=== PATIENT | male | born 1945 | race Caucasian/White ===

== ENCOUNTER → 2023-07-15 16:25 | Outpatient (REF) | payer MEDICARE, OTHER, SELFPAY | LOC: PAVMRI 16:25 | PROVIDERS: ATTENDING PHYSICIAN Specialist; FAMILY PHYSICIAN Internal Medicine | DX: M25.552 Pain in left hip (principal) | CPT/HCPCS: 72148; 73721 ==

== ENCOUNTER 2023-10-21 19:42 | Emergency (ER) | payer MEDICARE, OTHER, SELFPAY ==
[2023-10-21 19:43] VITALS: BP 180/81
[2023-10-21 22:05] VITALS: BP 173/76
[2023-10-21 22:06] VITALS: BP 173/76; BMI 35.4
[2023-10-21 22:24] LABS: % Basophils 0.8 % (0-2); % Eosinophils 2.3 % (0-6); % Immature Granulocytes 0.2 % (0-0.5); % Lymphocytes 24.4 % (20.5-51.1); % Monocytes 14.4 % (1.7-9.3); % Neutrophils 57.9 % (42.2-75.2); Absolute Basophils 0.1 10^3/uL (0-0.2); Absolute Eosinophils 0.2 10^3/uL (0-0.7); Absolute Lymphocytes 2.2 10^3/uL (1.2-3.4); Absolute Monocytes 1.3 10^3/uL (0.1-0.6); Absolute Neutrophils 5.3 10^3/uL (1.4-6.5); Hematocrit 38.4 % (39.0-52.0); Hemoglobin 13.6 g/dL (13.0-18.0); Mean Corp Hgb Conc. 35.4 g/dL (33.0-37.0); Mean Corpuscular Hgb 30.7 pg (27.0-31.0); Mean Corpuscular Volume 86.7 fL (80.0-94.0); Mean Platelet Volume 9.5 fL (7.4-10.4); Nucleated Red Blood Cells % 0 % (-); Platelet Count 245 10^3/uL (130-400); Red Blood Cell Count 4.43 10^6/uL (4.70-6.10); Red Cell Dist. Width 13.2 % (11.5-14.5); White Blood Cell Count 9.2 10^3/uL (4.8-10.8)
--- NOTE | 2023-10-21 22:25 | ED.GENMED ---
History of Present Illness
General
Chief Complaint: Swelling
Source: patient
Exam Limitations: none
Time Seen by Provider: 10/21/23 22:09
Nursing documentation reviewed up to this point in time: agreed with
History of Present Illness
History of Present Illness:
Pleasant 78-year-old male that presents with right leg swelling and pain. He states that the pain began yesterday afternoon. He noted that there was some swelling. The swelling persisted throughout today so he came into the emergency department
for evaluation. Incidentally, patient was on a [address] trip for which she recently returned. When he did return he had some shortness of breath. He was seen in his family doctor and diagnosed with 'pneumonia'. He was placed on several
antibiotics and his symptoms mostly resolved. He states that after returning to the family doctor he was told that the initial diagnosis was not pneumonia. Patient denies current shortness of breath. Denies fever or chills.
Past History
Past History
ED Past Medical History: HTN, Hypercholesterolemia, Other (Anxiety, hemachromatosis) and Other (Restless leg, non-melanoma skin cancer, sleep apnea, Syncope)
ED Past Surgical History: Orthopedic (C4-5 fusion, left knee arthroscopy) and Tonsilectomy
Social History
Tobacco: Non-smoker
Alcohol: Occasional
Drug: None
Personal:
Living: with family
Employment: Retired
Family History
Family History: Other (n/c)
Review of Systems
Review of Systems
Allergies reviewed?: Yes
Other source history: family
All Other Systems: ROS reviewed and negative except as documented in HPI and ROS
Constitutional: Reports no symptoms
EENT: Reports no symptoms
Respiratory: Denies trouble breathing
Cardiac: Reports no symptoms
ABD/GI: Reports no symptoms
: Reports no symptoms
Musculoskeletal: Reports no symptoms
Skin: Reports no symptoms
Neurological: Reports no symptoms
Endocrine: Reports no symptoms
Hematologic/Lymphatic: Reports no symptoms
Psychiatric: Reports anxiety
Phy Exam
General Physical Exam
General Presentation: well appearing and no apparent distress
General Skin: warm and dry
General Habitus: normal
General Mental: alert
General Hydration: appears well hydrated
ENT Exam
ENT Exam: EOMI, pharynx normal, neck supple and normocephalic
Eye Exam
Eye Exam: PERRL, cornea clear and conjunctiva normal
Cardiovascular Exam
Cardiovascular Exam: regular rate/rhythm, no edema, no murmur and normal peripheral pulses
Pulmonary Exam
Pulmonary Exam: lungs clear, no respiratory distress, no rales, no crackles, no rhonchi, no stridor, no wheezing and no cough
Gastrointestinal Exam
Gastrointestinal Exam: normal bowel sounds, non tender, soft, no organomegaly, no pulsatile mass and non distended
Neurological Exam
Neurological Exam: alert, oriented x3, no motor deficits and speech normal
Musculoskeletal Exam
Musculoskeletal Exam: edema (Right lower extremity edema) and neuro vasc intact
Skin Exam
Skin Exam: normal color, warm/dry, no rash and no petechia
Psychiatric Exam
Psychiatric Exam: normal mood/affect
Scores
Heart Failure Risk
Heart Failure Risk Score: Not Applicable
PE Wells Score
Symptoms of DVT: Yes
No alternative diagnosis better explains the illness: No
Tachycardia with pulse > 100: No
Immobilization (>=3 days) or surgery within previous 4 weeks: No
Prior history of DVT or pulmonary embolism: No
Presence of hemoptysis: No
Presence of malignancy: No
Pulmonary Embolism Risk Score: 0
Probability of PE: Pt is low risk
Course
Orders/Labs/Results
Orders:
Orders
10/21/23 22:16
CMP [Comprehensive Metabolic Panel] Urgent
Complete Blood Count/With Diff Urgent
10/21/23 22:26
Electrocardiogram (*1) Stat
Reason for Study: Other
Other Reason for Exam: chest pain
EKG- Treatment ONCE
10/21/23 22:27
CT Chest Pe Study Urgent
Comment:
Reason For Exam: dyspnea after 4000mi road trip
Cardiac Monitoring- Treatment ONCE
10/21/23 22:39
PTT Urgent
Prothrombin Time Urgent
10/22/23 00:28
US Legs, Bilateral [US Periph Venous LOWER Ext Yfn] Urgent
Comment:
Reason For Exam: r leg swelling
Abnormal Lab Results
10/21/23
22:16
RBC 4.43 L 10^6/uL
(4.70-6.10)
Hct 38.4 L %
(39.0-52.0)
Absolute Monos (auto) 1.3 H 10^3/uL
(0.1-0.6)
Monocytes % 14.4 H %
(1.7-9.3)
BUN 27 H mg/dl
(9-20)
Glucose 106 H mg/dl
(70-99)
10/21/23 22:16
10/21/23 22:16
Vital Signs
Initial and Last Documented VS:
Initial Vital Signs
Temp Pulse Resp BP Pulse Ox
98.8 F 67 16 180/81 96
10/21/23 19:43 10/21/23 19:43 10/21/23 19:43 10/21/23 19:43 10/21/23 19:43
Last Documented Vital Signs
Temp Pulse Resp BP Pulse Ox
98.8 F 59 20 163/74 96
10/21/23 19:43 10/22/23 02:19 10/22/23 02:19 10/22/23 02:19 10/22/23 02:19
*Critical Care Note
Total Time (30-74mins, 75-104mins- exclusive of procedures): Not Applicable
Update Note
Update Note:
Ultrasound of the bilateral lower extremities negative for DVT.
CT scan negative for pulmonary embolus. It does show a gallstone in the gallbladder neck.
ED Attending Note
-
Portions of this chart may have been created with voice recognition software.� Occasional wrong word or��sound alike� substitutions may have occurred due to the inherent limitations of voice recognition software.
Discharge Plan
Departure
Patient Disposition: Home (Routine Discharge)
Date of Disposition: 10/22/23
Time of Disposition: 02:21
Patient with high blood pressure during this ER visit?: Yes
Condition: Good
Discharge Problem:
Swelling
Instructions: BLOOD PRESSURE
Prescriptions:
No Action
atorvastatin 10 MG tablet
10 mg PO HS
amlodipine 5 MG tablet
5 mg PO HS
aspirin 81 MG tablet,delayed release (DR/EC)
81 mg PO DAILY
paroxetine HCl 20 MG tablet
20 mg PO DAILY
losartan [Cozaar] 100 MG tablet
100 mg PO HS
Vitamin D
1 tab PO DAILY
Osteo Bi-Flex Triple Strength 750 mg-644 mg- 30 mg-1 mg Tablet
1 tab PO BID
Referrals:
[facility] [Provider Group]
[facility] [Outside]
[facility] [Outside]
NONE,* [Active] -
Activity Restrictions/Additional Instructions:
CT scan showed a gallstone in the gallbladder neck. Please follow-up with your family doctor to further evaluate this.
It was a pleasure meeting you and taking part in your care. We hope for your continued healing and wellness.
Please read discharge instructions in their entirety. However, they are for general education and may not describe your exact diagnosis at discharge. Information on your ER visit and medical conditions were discussed with you along with appropriate
follow up information...
If indicated, please take your medications as instructed and indicated on discharge paperwork.
Please schedule a follow up appointment as directed. Call to schedule an appointment
Please return to the emergency department with ANY change in, persisting, or worsening of symptoms. If any of your symptoms do not improve, or persist, or become more severe within 6-12 hours, please return to the emergency department for further
care.
Please return to the emergency department if you develop a headache, neck pain/stiffness, fever greater than 100.4F, chest pain, shortness of breath, persistent nausea, vomiting, slurred speech, difficulty walking, numbness/tingling, weakness, signs
of infection or any other symptoms that are worrisome to you.
If you have any questions or concerns please do not hesitate to call the Hospital at or E-mail me directly at [email or web address]
Interventions
Interventions:
*Risk Screen - Suicide Last Done: 10/21/23 22:06
*General Assessment Last Done: 10/21/23 19:43
*Neglect/Abuse Screening Last Done: 10/21/23 22:06
ED- Fall Risk Assessment Last Done: 10/21/23 22:06
*ED COVID-19 Vaccine History Last Done: 10/21/23 19:43
*Nursing Disposition Last Done: 10/22/23 02:50
ED- Cardiac Assessment Last Done: 10/21/23 22:52
ED- Pulmonary Assessment Last Done: 10/21/23 22:52
ED-Skin Assessment Last Done: 10/21/23 22:52
Discharge Date and Time
Discharge Date/Time: 10/22/23 02:50
Print Language: SRI LANKAN
[2023-10-21 22:35] LABS: ALT (SGPT) 18 U/L (0-50); AST (SGOT) 29 U/L (17-59); Albumin 3.9 g/dl (3.5-5.0); Alkaline Phosphatase 91 U/L (38-126); Blood Urea Nitrogen 27 mg/dl (9-20); Calcium 9.8 mg/dl (8.4-10.2); Carbon Dioxide 28 mmol/L (22-30); Chloride 106 mmol/L (98-107); Estimated Creatinine Clearance 69 ml/min; Glucose 106 mg/dl (70-99); Potassium 3.6 mmol/L (3.5-5.1); Sodium 139 mmol/L (135-145); Total Bilirubin 0.7 mg/dl (0.2-1.3); Total Protein 6.5 g/dl (6.3-8.2); eGFR > 60.00
[2023-10-21 22:55] LABS: APTT 31.1 Sec (23.4-35.0); INR 1.06; PT 13.9 Sec (11.4-14.6)
[2023-10-21 23:00] VITALS: BP 158/68
--- NOTE | 2023-10-21 23:38 | EDRN ---
Back from Ct and hooked back up to monitor and resting comfortably.
[2023-10-22 00:29] VITALS: BP 169/84
--- NOTE | 2023-10-22 00:37 | EDRN ---
Updated patient and on CT results and plan for ultrasound of his legs, provided both with water.
--- NOTE | 2023-10-22 02:15 | EDRN ---
Patient unhooked to ambulate to restroom, aware we are waiting for ultrasound Report
[2023-10-22 02:19] VITALS: BP 163/74
== END 2023-10-22 02:50 | disposition home or self-care (01) ==
LOC: EMR 19:42
PROVIDERS: EMERGENCY PHYSICIAN Student in an Organized Health Care Education/Training Program; FAMILY PHYSICIAN Internal Medicine
DX: R22.41 Localized swelling, mass and lump, right lower limb (principal); I10 Essential (primary) hypertension; E78.00 Pure hypercholesterolemia, unspecified; F41.9 Anxiety disorder, unspecified; G25.81 Restless legs syndrome; G47.30 Sleep apnea, unspecified; Z85.828 Personal history of other malignant neoplasm of skin
CPT/HCPCS: 99284; 71275; 80053; 85025; 85610; 85730; 93005; 93970; Q9967

== ENCOUNTER 2023-11-05 19:05 | Emergency (ER) | payer MEDICARE, OTHER, SELFPAY ==
[2023-11-05 19:09] VITALS: BP 185/88
[2023-11-05 19:26] LABS: % Basophils 0.5 % (0-2); % Eosinophils 1.8 % (0-6); % Immature Granulocytes 0.3 % (0-0.5); % Lymphocytes 19.1 % (20.5-51.1); % Monocytes 11.2 % (1.7-9.3); % Neutrophils 67.1 % (42.2-75.2); Absolute Basophils 0.1 10^3/uL (0-0.2); Absolute Eosinophils 0.2 10^3/uL (0-0.7); Absolute Lymphocytes 1.9 10^3/uL (1.2-3.4); Absolute Monocytes 1.1 10^3/uL (0.1-0.6); Absolute Neutrophils 6.8 10^3/uL (1.4-6.5); Hematocrit 42.7 % (39.0-52.0); Hemoglobin 15.1 g/dL (13.0-18.0); Mean Corp Hgb Conc. 35.4 g/dL (33.0-37.0); Mean Corpuscular Hgb 30.9 pg (27.0-31.0); Mean Corpuscular Volume 87.3 fL (80.0-94.0); Nucleated Red Blood Cells % 0 % (-); Platelet Count 306 10^3/uL (130-400); Red Blood Cell Count 4.89 10^6/uL (4.70-6.10); Red Cell Dist. Width 13.2 % (11.5-14.5); White Blood Cell Count 10.1 10^3/uL (4.8-10.8)
[2023-11-05 19:45] LABS: ALT (SGPT) 18 U/L (0-50); AST (SGOT) 24 U/L (17-59); Albumin 4.4 g/dl (3.5-5.0); Alkaline Phosphatase 109 U/L (38-126); Blood Urea Nitrogen 19 mg/dl (9-20); Calcium 10.1 mg/dl (8.4-10.2); Carbon Dioxide 26 mmol/L (22-30); Chloride 105 mmol/L (98-107); Glucose 121 mg/dl (70-99); Sodium 139 mmol/L (135-145); Total Bilirubin 0.9 mg/dl (0.2-1.3); eGFR > 60.00
[2023-11-05 19:49] LABS: Troponin I < 0.012 ng/ml
--- NOTE | 2023-11-05 20:08 | ED.GENMED ---
History of Present Illness
General
Chief Complaint: Back Pain
Time Seen by Provider: 11/05/23 20:08
History of Present Illness
History of Present Illness:
78-year-old male with history of hypertension, GERD, hemochromatosis, chronic back pain with bulging disc presenting to the emergency department for back pain and chest pain. Patient reports around 5:30 PM, he was eating dinner and had acute onset
of back pain, with radiation to his chest. Symptoms lasted about 35 minutes, prompting him to come to the hospital. Notes that he chronically has back pain, however does not typically radiate to his chest. Denies any known cardiac history. He
had 4 baby aspirin prior to arrival. Reports that his symptoms have subsided, however still having some mid back pain. Patient reports he was seen in the hospital on 10/20 for some lower extremity swelling. At that time he had negative DVT
ultrasound. He also had a CT of his chest, without abnormality to his aorta or any evidence of PE. Denies any difficulty breathing. Denies any fever or cough. Reports that he has not seen a pool coordinator for several years. Denies additional
acute medical complaints.
Past History
Past History
ED Past Medical History: HTN, Hypercholesterolemia, Other (Anxiety, hemachromatosis) and Other (Restless leg, non-melanoma skin cancer, sleep apnea, Syncope)
ED Past Surgical History: Orthopedic (C4-5 fusion, left knee arthroscopy) and Tonsilectomy
Social History
Tobacco: Non-smoker
Alcohol: Occasional
Drug: None
Personal:
Living: with family
Employment: Retired
Family History
Family History: Other (n/c)
Phy Exam
Physical Exam
Physical Exam:
General: Well-appearing, no clinical signs of dehydration, nontoxic and in no acute distress
HEENT: protecting airway
Neck: appears supple
CV: Normal heart rate, regular rhythm, no evidence of cyanosis
Resp: No accessory muscle use, no increased work of breathing, lungs clear to auscultation bilaterally
Abd: Soft and non-distended, no tenderness to palpation, normal bowel sounds
Extremities: No deformities, no swelling, no erythema, pulses and sensation intact. No significant tenderness to the back.
Neuro: alert, no focal neurologic deficit
: deferred
Rectal: deferred
Psych: Normal affect
Skin: Intact
Course
Orders/Labs/Results
Orders:
Orders
11/05/23 19:10
Electrocardiogram (*1) Urgent
Reason for Study: Chest Pain
EKG- Treatment ONCE
11/05/23 19:21
Complete Blood Count/With Diff Urgent
Comprehensive Metabolic Panel Urgent
Troponin I Urgent
11/05/23 20:30
Acetaminophen [Tylenol] 1,000 mg PO NOW STA
11/05/23 22:13
Troponin I Urgent
11/05/23 22:26
Electrocardiogram (*1) Urgent
Reason for Study: Chest Pain
EKG- Treatment ONCE
Abnormal Lab Results
11/05/23
19:21
Absolute Neuts (auto) 6.8 H 10^3/uL
(1.4-6.5)
Absolute Monos (auto) 1.1 H 10^3/uL
(0.1-0.6)
Lymphocytes % 19.1 L %
(20.5-51.1)
Monocytes % 11.2 H %
(1.7-9.3)
Glucose 121 H mg/dl
(70-99)
11/05/23 19:21
11/05/23 19:21
Vital Signs
Initial and Last Documented VS:
Initial Vital Signs
Temp Pulse Resp BP Pulse Ox
98.2 F 68 18 185/88 97
11/05/23 19:09 11/05/23 19:09 11/05/23 19:09 11/05/23 19:09 11/05/23 19:09
Last Documented Vital Signs
Temp Pulse Resp BP Pulse Ox
98.2 F 51 12 170/77 96
11/05/23 19:09 11/05/23 23:00 11/05/23 23:00 11/05/23 23:00 11/05/23 23:00
MDM/Problems Addressed
MDM/Problems Addressed:
70-year-old male with history of hypertension, chronic back pain with bulging disc, hemochromatosis presenting for episode of back pain with radiation to his chest, onset prior to arrival. Vital signs on arrival significant for hypertension,
however patient is due for his blood pressure medication.
On exam, patient is resting comfortably, no acute distress or discomfort. Reports that the chest pain has since resolved. Is still having some soreness to his back, has not had any pain medication for his back pain today. Reports that his back
has been bothering him since a road trip that he took with his about a month ago. Suspect possible musculoskeletal component. Will administer Tylenol. EKG obtained on patient's arrival, nonischemic, no change from prior. Nursing protocol
placed with laboratory analysis obtained, negative troponin. At this time, lower suspicion for ACS. However, patient does have cardiac risk factors so plan for repeat troponin given onset of symptoms prior to arrival. Patient's symptoms and
presenting hypertension concerning for possible aortic pathology such as dissection, however patient had a CT of his chest completed on 10/20 which did not display any aortic abnormality. For this reason, do not feel patient requires any repeat CT
imaging of his chest. Will continue to closely monitor.
23:35 - Patient's labs are unremarkable. Repeat troponin undetectable and repeat EKG remains nonischemic. On reassessment, notes improvement of back pain after Tylenol. Continues to report back pain with movement. Suspect musculoskeletal
etiology. Feel stable for discharge, however advised outpatient cardiac follow-up since he has not seen a pool coordinator in years. Patient is requesting a muscle relaxer. Cautioned against somnolence and fall safety. Return precautions discussed
and patient verbalized understanding
*EKG
Interpreted by ED Provider?: Yes
EKG Intrepretation Date: 11/05/23
EKG Intrepretation Time: 20:38
Interpretation: normal
Comparison EKG: no changes (10/21/23)
Heart Rate: 65
Rate: normal
Rhythm: sinus
[place]: normal axis
Interval: first degree heart block
QRS Pattern: normal QRS
Ischemia: no ischemia
*Critical Care Note
Total Time (30-74mins, 75-104mins- exclusive of procedures): Not Applicable
ED Attending Note
-
Portions of this chart may have been created with voice recognition software.� Occasional wrong word or��sound alike� substitutions may have occurred due to the inherent limitations of voice recognition software.
Discharge Plan
Departure
Prescriptions:
No Action
atorvastatin 10 MG tablet
10 mg PO HS
amlodipine 5 MG tablet
5 mg PO HS
aspirin 81 MG tablet,delayed release (DR/EC)
81 mg PO DAILY
paroxetine HCl 20 MG tablet
20 mg PO DAILY
losartan [Cozaar] 100 MG tablet
100 mg PO HS
Vitamin D
1 tab PO DAILY
Osteo Bi-Flex Triple Strength 750 mg-644 mg- 30 mg-1 mg Tablet
1 tab PO BID
Referrals:
Braden Sexton MD [Family Provider] -
Interventions
Interventions:
*Risk Screen - Suicide Last Done: 11/05/23 20:58
*General Assessment Last Done: 11/05/23 20:58
*Neglect/Abuse Screening Last Done: 11/05/23 20:58
ED- Fall Risk Assessment Last Done: 11/05/23 20:58
ED-Musculoskeletal Assessment Last Done: 11/05/23 21:01
Discharge Date and Time
Print Language: FRENCH
[2023-11-05] MEDS: TYLENOL 1000 MG PO (20:54)
[2023-11-05 20:57] VITALS: BP 177/79
[2023-11-05 20:58] VITALS: BMI 32.3
[2023-11-05 22:00] VITALS: BP 161/76
[2023-11-05 22:46] LABS: Troponin I < 0.012 ng/ml
[2023-11-05 23:00] VITALS: BP 170/77
[2023-11-05] MEDS: TORADOL 15 MG IM (23:34)
== END 2023-11-05 23:55 | disposition home or self-care (01) ==
LOC: EMR 19:05
PROVIDERS: Emergency Medicine; EMERGENCY PHYSICIAN Student in an Organized Health Care Education/Training Program; FAMILY PHYSICIAN Internal Medicine
DX: R07.89 Other chest pain (principal); I10 Essential (primary) hypertension; M54.6 Pain in thoracic spine; K21.9 Gastro-esophageal reflux disease without esophagitis; E78.00 Pure hypercholesterolemia, unspecified; F41.9 Anxiety disorder, unspecified; G47.30 Sleep apnea, unspecified; G25.81 Restless legs syndrome; Z85.828 Personal history of other malignant neoplasm of skin; Z92.3 Personal history of irradiation
CPT/HCPCS: 99283; 96372; 80053; 84484; 85025; 93005

== ENCOUNTER → 2023-12-02 09:58 | Outpatient (REF) | payer MEDICARE, OTHER, SELFPAY | LOC: RCS 09:58 | PROVIDERS: ATTENDING PHYSICIAN Internal Medicine Cardiovascular Disease; FAMILY PHYSICIAN Internal Medicine | DX: I10 Essential (primary) hypertension (principal); R07.89 Other chest pain | CPT/HCPCS: 93017 ==

== ENCOUNTER → 2023-12-22 13:52 | Outpatient (REF) | payer MEDICARE, OTHER, SELFPAY | LOC: HWRCS 13:52 | PROVIDERS: ATTENDING PHYSICIAN Internal Medicine Cardiovascular Disease; FAMILY PHYSICIAN Internal Medicine | DX: I10 Essential (primary) hypertension (principal); R07.89 Other chest pain | CPT/HCPCS: 93306 ==